=== PATIENT | female | born 2000 | race Hispanic/Latino ===

== ENCOUNTER 2021-01-02 08:21 | Emergency (ER) | payer SELFPAY ==
--- NOTE | ~2021-01-02 | US_ITS ---
EXAMINATION: US pelvic complete w TV DATE: 01/02/2021 09:14 INDICATION: Dysfunctional uterine bleeding. Pelvic pain. TECHNIQUE: Multiple transabdominal and transvaginal sonographic images of the pelvis were obtained. COMPARISON: None. FINDINGS: TRANSABDOMINAL ULTRASOUND: The uterus measures 6.1 x 2.8 x 4.3 cm. There is no free fluid in the pelvis. TRANSVAGINAL ULTRASOUND: The endometrial complex measures 2 mm in thickness. There are nabothian cysts in the cervix. The righ t ovary measures 2.6 x 2.0 x 2.1 cm. The left ovary measures 1.9 x 1.1 x 1.3 cm. There is normal vasc ular flow in the ovaries. IMPRESSION: 1. No etiology for the patient's symptoms. Reviewed, dictated and finalized at location B.
[2021-01-02 08:24] VITALS: BP 117/75; PULSE 67; RESP 16; TEMP 36; O2SAT 100
--- NOTE | 2021-01-02 09:31 | ED.FEMALEGU ---
HPI - Female Genitourinary General Chief complaint: Vaginal Bleeding Stated complaint: irregular vaginal bleeding Time Seen by Provider: 01/02/21 08:39 Source: patient and other (Help Desk Team Leader at bedside, patient is Thai speaking only) Mode of arrival: ambulatory Limitations: no limitations History of Present Illness HPI Narrative: Patient is a 1 year old female who presents with complaints of vaginal bleeding x 19 days and pelvic cramping. She reports mostly normal menstrual cycles. She denies risks of or STDs. Patient does not have OBGYN. She denies dizziness, lightheaded, nausea or vomiting. She reports that bleeding has slowed but continues to use a few pads daily. She reports initially heavy bleeding which has subsided approximately a week ago. She refuses STD testing at this time. She denies significant medical history. MD elicited complaint: vaginal bleeding Review of Systems Review of Systems: Narrative: CONSTITUTIONAL: Denies fever, chills, or sweats. EYES: Denies visual changes, redness, or discharge. ENT: Denies rhinorrhea, congestion, sore throat, or otalgia. CARDIOVASCULAR: Denies chest pain, palpitations, or edema. RESPIRATORY: Denies cough or dyspnea. GASTROINTESTINAL: Denies abdominal pain, nausea, vomiting, or diarrhea. GENITOURINARY: Denies dysuria or hematuria. Reports vaginal bleeding x19 days. SKIN: Denies rash or itching. MUSCULOSKELETAL: Denies back pain, joint pain, or myalgia. NEUROLOGIC: Denies headache, numbness, dizziness, or weakness. PSYCHIATRIC: Denies anxiety or depression. [facility] Past Medical History Medical History No significant past medical history Surgical History Surgical History No significant past surgical history Family History Family History Other No significant family history Social History Social History Smoking status: Never smoker Alcohol intake: never Substance use: never Living arrangements: with family Gender identity (if verbalized by the patient): Female Comments At the time of signature, I have reviewed and agree with nursing past medical, surgical, social, and family history unless otherwise noted. Please see nursing chart for further information. There is no relevant family history pertinent to the presenting complaint. Exam Narrative: Exam Narrative: GENERAL: Well-appearing, well-nourished, and in no acute distress. HEAD: Normocephalic, atraumatic. EYES: No redness or drainage. Conjunctiva are normal. ENT: Mucous membranes pink and moist. CHEST: No respiratory distress. HEART: Regular rate and rhythm. No murmur appreciated. Normal peripheral pulses. GI: Soft, nontender without rebound, or guarding. No distention. Bowel sounds normal in all quadrants. : Small amount of blood in vaginal vault, cervix closed, no lesions or masses noted, no adnexal tenderness with palpation. EXTREMITIES: Normal range of motion. SKIN: Warm, dry, no rash. NEURO: No focal deficits. Alert and oriented x3. Gait steady. PSYCH: Normal affect. No signs of depression or anxiety. Course Vital Signs Vital signs: Vital Signs Temperature 36.0 C L 01/02/21 08:24 Pulse Rate 67 01/02/21 08:24 Respiratory Rate 16 01/02/21 08:24 Blood Pressure 117/75 01/02/21 08:24 Pulse Oximetry 100 01/02/21 08:24 Temperature 36.0 C L 01/02/21 08:24 Pulse Rate 67 01/02/21 08:24 Respiratory Rate 16 01/02/21 08:24 Blood Pressure 117/75 01/02/21 08:24 Pulse Oximetry 100 01/02/21 08:24 Reviewed MDM - Female Genitourinary MDM Narrative Medical decision making narrative: Patient's labs and ultrasound are unremarkable. Discussed with patient the need to follow up with OBGYN for further evaluation. Patient agrees with plan of car
[2021-01-02 09:43] LABS: Basophils Absolute Auto 0.1 K/mm3 (0.0-0.1); Eosinophils Absolute Auto 0.3 K/mm3 (0-0.3); Eosinophils Percent Auto 3.4 % (0-4.4); Hematocrit 39.9 % (37.0-47.0); Hemoglobin 13.1 g/dL (12.0-15.0); Immature Granulocyte Absolute 0.02 K/mm3 (0.00-0.031); Immature Granulocyte Percent A 0.2 % (0-0.5); Lymphocytes Absolute Auto 2.54 K/mm3 (0.9-3.2); Lymphocytes Percent Auto 31.2 % (18.3-44.2); Mean Corpuscular HGB Conc 32.8 g/dl (32-36); Mean Corpuscular Hemoglobin 28.5 pg (26-34); Mean Corpuscular Volume 86.7 fl (80-100); Mean Platelet Volume 11.1 fl (7.4-10.4); Monocytes Absolute Auto 0.7 K/mm3 (0.1-0.6); Monocytes Percent Auto 8.8 % (2.6-8.5); Neutrophils Absolute Auto 4.5 K/mm3 (1.3-6.7); Neutrophils Percent Auto 55.4 % (45.5-73.1); Platelet Count Result 337 k/mm3 (150-375); Red Cell Distribution Width 13.1 % (11.5-14.5); White Blood Count 8.1 K/mm3 (4.5-10.0)
[2021-01-02 09:53] LABS: Anion Gap 6 mmol/L (8-16); Blood Urea Nitrogen 15 mg/dL (7-17); Calcium 8.9 mg/dL (8.4-10.2); Carbon Dioxide 26 mmol/L (22-30); Chloride 106 mmol/L (98-107); Estimated CRCL calculation 102 ml/min; Estimated Glomerular Filt Rate > 60; Glucose 103 mg/dL (65-105); Potassium 4.1 mmol/L (3.4-5.0); Sodium 138 mmol/L (137-145)
[2021-01-02 10:30] VITALS: BP 110/72; PULSE 88; RESP 16; TEMP 36.8; O2SAT 99
== END 2021-01-02 10:34 | disposition home or self-care (01) ==
PROVIDERS: Emergency Medicine; Emergency Provider Nurse Practitioner
DX: N93.9 Abnormal uterine and vaginal bleeding, unspecified (principal)
CPT/HCPCS: 36415; 76830; 76856; 80048; 81025; 85025; 99284